=== PATIENT | male | born 1930 | race Caucasian/White ===

== ENCOUNTER 2019-03-28 13:44 | Outpatient (CLI) | payer MEDICARE, OTHER | END 2019-03-28 13:45 | disposition critical access hospital (66) | LOC: EMS 13:44 | PROVIDERS: ATTEND Surgery | DX: M25.552 Pain in left hip (principal); S09.90XA Unspecified injury of head, initial encounter; W01.0XXA Fall on same level from slipping, tripping and stumbling without subsequent striking against object, initial encounter; Y92.099 Unspecified place in other non-institutional residence as the place of occurrence of the external cause | CPT/HCPCS: A0425; A0429 ==